=== PATIENT | male | born 2000 | race Caucasian/White ===

== ENCOUNTER 2023-05-05 15:20 | Emergency (ER) | payer OTHER ==
[2023-05-05] MEDS ORDERED: Tetracaine 0.5% PF 4 ML BOT ONE (15:39)
[2023-05-05] MEDS ORDERED: Fluorescein Opthalmic Strip ONE (15:39)
== END 2023-05-05 15:58 | disposition home or self-care (01) ==
LOC: BURERS 15:20
DX: T15.01XA Foreign body in cornea, right eye, initial encounter (principal)
CPT/HCPCS: 65220